=== PATIENT | female | born 1960 | race Caucasian/White ===

== ENCOUNTER 2016-08-22 21:24 | Emergency (ER) | payer OTHER ==
[~2016-08-22] VITALS: Ht 162.6 cm; Wt 90.7 kg
[~2016-08-22 21:24] MED LIST: AMBIEN 10 MG TA10 MG PO; CARISOPRODOL 3350 M1 PO; COLESTIPOL HCL1 G1 PO; DULERA 100 MCG/13 GM INH; ESTRACE0.5 MG PO; ESTRACE2 MG PO; FLAGYL500 MG PO; HYDROCODON-ACE1 EAC1 PO; HYDROCODON-ACE1 EAC8 PO; HYDROXYCHLOROQ200 M1 PO; IBUPROFEN200 M2 PO; IMURAN 50MG TAB50 M1 PO; LANSOPRAZOLE30 MG PO; LEVAQUIN 500 M500 M1 PO; LEXAPRO20 MG PO; LUNESTA3 MG PO; MIRALAX255 GM PO; MOBIC15 MG PO; NEURONTIN600 MG PO; NEXIUM40 MG PO; NORCO 10-325 T1 EACH PO; NORCO 5-325 TA1 EACH PO; ONDANSETRON HCL4 M2 PO; PHENOBARBITAL30 MG PO; PROAIR HFA8.5 GM INH; PROCARDIA XL30 MG PO; RISPERDAL 1 MG T1 MG PO; SERTRALINE HCL50 MG PO; SINGULAIR 10 MG10 M1 PO; SINGULAIR 10 MG10 MG PO; SINGULAIR4 MG PO; SYMBICORT160 MCG/4. INH; TIZANIDINE HCL 22 M1 PO; TRAZODONE 150150 M1 PO; TRINTELLIX PO; VITAMIN D1000 UNIT PO; WELLBUTRIN 100100 MG PO; WELLBUTRIN SR200 MG PO; XANAX 0.25 MG0.25 MG PO; ZYRTEC10 M5 PO; [UNRECOGNIZED DRUG - SUPPLY] PO
[2016-08-22] MEDS ORDERED: PREDNISONE 20 M20 MG PO (23:30)
== END 2016-08-22 23:36 ==
LOC: ER 21:24
DX: L50.0 Allergic urticaria (principal); L29.9 Pruritus, unspecified; J45.909 Unspecified asthma, uncomplicated; K21.9 Gastro-esophageal reflux disease without esophagitis; K74.3 Primary biliary cirrhosis; Z90.710 Acquired absence of both cervix and uterus; F32.9 Major depressive disorder, single episode, unspecified; Z90.89 Acquired absence of other organs; Z90.49 Acquired absence of other specified parts of digestive tract; Z85.3 Personal history of malignant neoplasm of breast; Z88.5 Allergy status to narcotic agent

== ENCOUNTER → 2019-08-11 | Outpatient (CLI) | payer OTHER ==
[~2019-08-11] MED LIST changes: +AZATHIOPRINE50 MG PO; +BENTYL 20 MG TA20 M1 PO; +BRINTELLIX20 MG PO; +CELECOXIB100 MG PO; +CHLORZOXAZONE500 MG PO; +ESZOPICLONE3 MG PO; +GABAPENTIN800 M1 PO; +HYDROCODONE-APA1 TA1 PO; +PEPCID20 MG PO; +PHENOBARBITAL32.4 M2 PO; +PREDNISONE 20 M20 MG PO; +RESTASIS1 EACH OPHTHALMIC; +TRAZODONE HCL50 MG PO; +ZOFRAN ODT4 MG DISSOLVE
== END ==
LOC: RAD 14:58
DX: K56.41 Fecal impaction (principal); Z90.49 Acquired absence of other specified parts of digestive tract

== ENCOUNTER → 2019-12-14 | Outpatient (CLI) | payer OTHER ==
[~2019-12-14] VITALS: Ht 160 cm; Wt 106.6 kg
[~2019-12-14] MED LIST changes: +CLONAZEPAM 0.50.5 M1 PO; +FENOFIBRATE145 M1 PO; +IMVEXXY10 MCG VAG; +LYRICA200 MG PO; +OMEPRAZOLE40 MG PO; +RIFAMPIN150 MG PO; +VOLTAREN GEL 1100 G1 TOP
[2019-12-14 10:29] VITALS: BP 141/68
--- NOTE | 2019-12-14 11:04 | NUR ---
Pain Clinic Assessment: 1. History of Osteoarthritis: NECK BACK ANKLES RT FOOT HIPS History of Rheumatoid Arthritis: Not Applicable 2. Height: 5 ft. 3 in. 160.0 cm. Weight: 235.0 lb. oz. 106.596 kg. Patient's BMI: 41.6 3. Vital Signs: BP: 141/68 Pulse: 60 Resp: 16 Temp: 02 Sat: 100 ECG Mon: 4. Pain Intensity: 7 5. Fall Risk: Dizziness: N Needs help standing or walking: N Fallen in the last 3 months: N Fall risk comments: 6. Patient on Blood Thinner: None 7. History of Hypertension: Y 8. Opioid Therapy greater than 6 weeks: N Opiate Contract Signed: 9. Risk Assessment Tool Provided: MODERATE RISK 08/30 10. Functional Assessment Tool: 11. Recreational Drug Use: Never Drug Type: Tobacco Use: Never Smoker Tobacco Type: Amount or Packs/day: How Many Years: Alcohol Use: No Frequency: Quant:
--- NOTE | 2019-12-29 14:21 | HPC ---
[facility] [address] [place] [address] PAIN MANAGEMENT CONSULTATION Name: ANUP CHAPMAN Room #: REG ROBBIE Alfaro.#: [id number] Admission: 12/14/19 Attend Phys: Alexy Manning DO Discharge: Date of : 64 Report #: [id number] THIS REPORT FOR: cc: Alexy Rowland James A. DO Johnson, James E. DO ~ DATE OF SERVICE: 12/14/2019 REFERRING PHYSICIAN: Parisa Hutchison DPM CHIEF COMPLAINT: Left foot pain. HISTORY OF PRESENT ILLNESS: As you know, the patient is a 59-year-old, class 3 morbidly obese female who has had a longstanding history of left foot pain. She states her pain began 05/14/2019 without inciting injury or trauma. She states her pain is aching and tender in sensation, exacerbated with walking and standing, improves with rest and medications. She is placing current pain score at 7/10. She was seen in consultation with Dr. Parisa Hutchison to review her ongoing left foot issue. It was noted that she is experiencing mainly lateral left mid foot pain. She states that her pain began spontaneously and is aggravated by wearing shoes and bearing weight on her foot. She is denying any concerning findings of radiculopathy. She is on chronic medication management with fentanyl and hydrocodone for other issues and has had epidural injections in the past. Due to her complicated nature and lack of improvement with conservative treatment, the patient was referred to our clinic to discuss ongoing lateral ankle and foot pain. The patient reports today that she suffered no injury or trauma. She has been following with Podiatry and has an upcoming appointment in 3 weeks. She has had no surgery today, no concerning findings of CRPS. She did have a precancerous lesion removed from the area, but this is unrelated to the current workup and diagnosis. She does have MRI, which shows positive tendinitis and mild osteoarthritic changes. Due to lack of improvement with conservative treatment, the patient was referred to our clinic to discuss options for treatment. The patient indicates today pain is continuous and constant. She describes the pain as aching and tender. She describes the pain level of 8/10 today, daily average at 8/10, worst pain has been as 10/10. Pain is exacerbated only with standing and walking and is resolved with sitting and lying down. Rest tends to improve symptoms. She has been referred to our service to discuss left lateral foot pain without radicular component. PAST MEDICAL HISTORY: 1. Anemia. 2. Asthma. 3. [place] [address] PAIN MANAGEMENT CONSULTATION Name: ANUP CHAPMAN Room #: REG Carmen Mohr#: [id number] Admission: 12/14/19 Attend Phys: Alexy Manning DO Discharge: Date of : 64 Report #: [id number] 4. Chronic colon problems. 5. Emotional problems. 6. Degenerative joint disease. 7. Osteoarthritis. 8. Morbid obesity. 9. GERD. PAST SURGICAL HISTORY: 1. Hysterectomy. 2. Epigastric nodule removal. 3. Gallbladder surgery. 4. Appendectomy. 5. Right mastectomy. 6. Cervical fusion. SOCIAL HISTORY: The patient denies tobacco use. Denies IV or illicit drug use. Denies any chronic alcohol use. 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 She is receiving disability income, but is not in litigation in regards to pain. She is unaccompanied at today's visit. REVIEW OF SYSTEMS: Positive for increasing weight, night sweats, fatigue, weakness, frequent and recurrent headaches, wearing corrective eyewear, cataracts, chronic sinus problems with nosebleeds, mouth sores, voice changes and shortness of breath when walking or lying flat, frequent and recurrent coughs, asthma, wheezing, nausea, vomiting, constipation interspersed with diarrhea, painful bowel movements, abdominal pain, nocturia, incontinence, dribbling to urine, sexual difficulty, frequent and recurrent headaches, itching, memory loss with confusion, depression, insomnia, heat and cold intolerance, slow to heal after cuts, bleeding and bruising tendencies. All other review of systems negative per 12-point review of systems other than those listed in history of present illness. Pain impact score 45/70 indicating moderate interference of daily activities secondary to pain. ALLERGIES: CODEINE. CURRENT MEDICATIONS: Estradiol 10 mcg inserted vaginally, fenofibrate 145 mg once a day, clonazepam 0.5 mg daily p.r.n., rifampin 150 mg per day, montelukast sodium 10 mg per day, Lyrica 200 mg once a day, omeprazole 40 mg per day, celecoxib 100 mg per day, hydrocodone 7.5/325 one tab every 6 hours p.r.n. pain, azathioprine 50 mg per day, cetirizine 10 mg per day, Lunesta 3 mg per day, Trintellix 20 mg once a day, Symbicort 160/4.5 mcg inhaled twice a day, ondansetron 4 mg per day, bupropion SR 200 mg once a day, albuterol 2 puffs q. 4 hours p.r.n., nifedipine 30 mg per day, hydroxychloroquine 200 mg once a day. [address] [address] PAIN MANAGEMENT CONSULTATION Name: ANUP CHAPMAN Room #: REG [facility]#: [id number] Admission: 12/14/19 Attend Phys: Alexy Manning DO Discharge: Date of : 64 Report #: [id number] IMAGING: MRI of the left hindfoot obtained 06/29/2019 shows mild tendinitis of the distal peroneus brevis tendon without findings of disruption. No osseous abnormalities noted. Mild prominence of the inferior calcaneal spur consistent with plantar fasciitis. Slight thickening of the medial band of the plantar fascia, also suggestive of plantar fasciitis, ligaments and tendons otherwise intact. PHYSICAL EXAMINATION: VITAL SIGNS: Blood pressure 141/68, pulse 60, respiratory rate 16 and unlabored. The patient is 100% on room air. Height 5 feet 3 inches tall, weight 235 pounds and BMI calculated 41.6. GENERAL: Well-developed, well-nourished, well-hydrated, class 3, morbidly obese 59-year-old female appearing stated age. She is in no acute distress. She is awake, alert and oriented x 3. Current pain score is rated at 7/10. HEENT: Normocephalic, atraumatic. Pupils equal, round and reactive. NEUROLOGIC: Speech is fluent. The patient deemed a fair historian. LUNGS: Appear clear. She is able to complete sentences without complications. No cough, wheezing or audible vesicular sounds. CARDIOVASCULAR: Regular. ABDOMEN: Soft, severely obese. Bowel sounds appear present. EXTREMITIES: Show no clubbing, no cyanosis, and no edema. MUSCULOSKELETAL: There is some palpatory tenderness over the lateral aspect of the foot consistent with tenderness of the lateral ankle. There are no changes in skin color or texture. There are no changes in skin temperature concerning of complex regional pain syndrome. Hair growth and nail growth are equal in comparing left lower extremity right. Pain is elicited with standing from a seated position. It is noted the patient is pronating while ambulating. ASSESSMENT: 1. Left lateral foot pain. 2. Left lateral ligamentous pain. 3. Chronic generalized body pain. PLAN: 1. Based on today's physical exam and history the patient has provided, the description the patient uses in regards to pain as well as the location of symptoms, it appears the symptoms are related specifically to the lateral aspect of the foot. There is no radicular component to the patient's symptoms concerning of lumbar radiculopathy. I am unable to elicit any neurologic findings concerning of impingement of a nerve leading to the area. The patient's symptoms are related to standing and walking consistent with a mechanical issue. We have discussed this with the patient today. We recommend strongly the patient follow up with Podiatry in regards to this issue. The patient does have appointment with sheet metal layout mechanic who specializes in lateral foot issues in 3 weeks. We recommend the patient follow with this individual. 2. The patient does report that she had had orthotics provided, but based on [address] [address] PAIN MANAGEMENT CONSULTATION Name: ANUP CHAPMAN CHIQUITA Room #: REG ROBBIE Mohr#: [id number] Admission: 12/14/19 Attend Phys: Alexy Manning DO Discharge: Date of : 64 Report #: [id number] her description of how these were fitted it would appear that these were not professionally performed. I believe that her orthotics may actually be exacerbating symptoms. Based on her gait today, she is pronating fairly significantly on the left side, which is putting strain on the lateral aspect of the foot and could be corrected with appropriate orthotics. She will discuss this with her sheet metal layout mechanic. 3. No medication changes made at today's visit. At this point, it would not appear that the adjustments in medication management would be necessary as no specific agent will address just lateral foot. She does have a concerning history based on our opioid risk assessment tool showing her to be a [id number] risk for potential issues with opioid medications and thus this makes her a non-candidate for this type of treatment. Anti-inflammatories can be utilized either topical or orally. We will defer to the primary team if they wish to initiate that therapy. 4. At this appointment, I do not see a need for any interventional treatments as nothing would address the issues directly without correction of the mechanical issues, which are the source of her symptoms. We will defer to the Podiatry team for those adjustments in gait and station. 5. We wish to thank the referring physician, Dr. Parisa Hutchison for the opportunity to see the patient in consultation. We recommend followup with the Podiatry group in 3 weeks as currently scheduled for followup. We are hopeful the information provided here will help direct care further. We will be returning her care to your capable services. <ELECTRONICALLY SIGNED> By: Alexy Manning DO 12/29/19 1421 [id number] Alexy Manning DO /nt
== END ==
LOC: MRI 08-27 10:17 → PAIN 06:58
PROVIDERS: ATTEND Anesthesiology Pain Medicine
DX: M79.672 Pain in left foot (principal); G89.29 Other chronic pain; J45.909 Unspecified asthma, uncomplicated; I10 Essential (primary) hypertension; M19.90 Unspecified osteoarthritis, unspecified site; K21.9 Gastro-esophageal reflux disease without esophagitis; Z88.5 Allergy status to narcotic agent; Z88.8 Allergy status to other drugs, medicaments and biological substances; Z79.899 Other long term (current) drug therapy; Z98.890 Other specified postprocedural states

== ENCOUNTER → 2020-06-28 | Outpatient (CLI) | payer OTHER | LOC: SJCVC 12:53 | PROVIDERS: ATTEND Internal Medicine | DX: R94.31 Abnormal electrocardiogram [ECG] [EKG] (principal); I10 Essential (primary) hypertension; R07.2 Precordial pain; R06.02 Shortness of breath; E78.00 Pure hypercholesterolemia, unspecified; E78.5 Hyperlipidemia, unspecified; Z72.89 Other problems related to lifestyle; Z88.5 Allergy status to narcotic agent; Z88.8 Allergy status to other drugs, medicaments and biological substances; Z79.899 Other long term (current) drug therapy ==

== ENCOUNTER → 2020-07-11 | Outpatient (CLI) | payer OTHER | LOC: SJCVCIMAG 06:40 | PROVIDERS: ATTEND Internal Medicine | DX: R00.0 Tachycardia, unspecified (principal); R06.00 Dyspnea, unspecified; R51.9 Headache, unspecified; R07.9 Chest pain, unspecified; E78.5 Hyperlipidemia, unspecified; M19.90 Unspecified osteoarthritis, unspecified site; I73.00 Raynaud's syndrome without gangrene; I10 Essential (primary) hypertension; Z79.899 Other long term (current) drug therapy; Z88.5 Allergy status to narcotic agent; Z88.8 Allergy status to other drugs, medicaments and biological substances ==

== ENCOUNTER → 2020-08-08 | Outpatient (CLI) | payer OTHER ==
[~2020-08-08] MED LIST changes: +FLEXERIL PO; +IMITREX100 MG PO; +LISINOPRIL5 MG PO; +OXYCODON-ACETA1 EAC1 PO
== END ==
LOC: SJCVC 14:39
PROVIDERS: ATTEND Internal Medicine
DX: I10 Essential (primary) hypertension (principal); R07.9 Chest pain, unspecified; R06.02 Shortness of breath; K74.3 Primary biliary cirrhosis; I73.00 Raynaud's syndrome without gangrene; E78.5 Hyperlipidemia, unspecified; M16.9 Osteoarthritis of hip, unspecified; Z82.49 Family history of ischemic heart disease and other diseases of the circulatory system; Z79.899 Other long term (current) drug therapy

== ENCOUNTER → 2020-08-10 | Outpatient (CLI) | payer OTHER | LOC: LAB 08:59 | PROVIDERS: ATTEND Orthopaedic Surgery Sports Medicine | DX: Z01.812 Encounter for preprocedural laboratory examination (principal); Z20.822 Contact with and (suspected) exposure to COVID-19 ==

== ENCOUNTER 2020-08-15 07:50 | Day surgery (SDC) | payer OTHER ==
[~2020-08-15] VITALS: Ht 162.6 cm; Wt 108.4 kg
[2020-08-15 09:49] VITALS: BP 126/77
[2020-08-15 12:20] VITALS: BP 126/77
--- NOTE | 2020-08-16 11:40 | O ---
[facility] [address] [place] [address] OPERATIVE REPORT Name: ANUP CHAPMAN Room #: DEP [facility] M.Ev.#: [id number] Admission: 08/15/20 Attend Phys: Felix Lei MD Discharge: 08/15/20 Date of : 64 Report #: [id number] THIS REPORT FOR: cc: Alexy Rowland James A. DO McCabe, Michael P. MD ~ DATE OF SERVICE: 08/15/2020 SERVICE: Orthopedics. FACILITY: [facility]. SURGEON: Felix Lei MD BLUEPRINT TRACER: Marilou Treadwell. INDICATION FOR BLUEPRINT TRACER: Extremity positioning, suture management, arthroscope management, assistance with the repair. PREOPERATIVE DIAGNOSES: 1. Right hip pain. 2. Right hip femoroacetabular impingement. 3. Right hip sub-spine impingement. 4. Right hip labral tear. 5. Morbid obesity (BMI = 42). POSTOPERATIVE DIAGNOSES: 1. Right hip pain. 2. Right hip femoroacetabular impingement. 3. Right hip sub-spine impingement. 4. Right hip labral tear. 5. Morbid obesity (BMI = 42). 6. Right hip acetabular rim chondromalacia. PROCEDURES: 1. Right hip arthroscopic labral repair. 2. Right hip arthroscopic Cam osteochondroplasty. 3. Right hip arthroscopic sub-spine decompression. 4. Right hip limited arthroscopic chondroplasty. COMPLICATIONS: None. DRAINS: None. SPECIMENS: None. [facility] [address] [place] [address] OPERATIVE REPORT Name: ANUP CHAPMAN Room #: DEP [facility] M.R.#: [id number] Admission: 08/15/20 Attend Phys: Felix Lei MD Discharge: 08/15/20 Date of : 64 Report #: [id number] ANESTHESIA: General with regional. FINDINGS: 1. Acetabular labral repair fixing anterior labral tear with lateral chondral wave sign with Mckinley CinchLock suture anchor x 2. 2. 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 3. Additional source of impingement requiring additional capsular dissection and bony work of the sub-spine with a prominent anterior inferior iliac spine that sat directly above the acetabular labrum at the point of maximal pathology. 4. Increased procedural complexity due to the patient's body habitus. Preoperative BMI of 42. We employed additional surgical positioning and intraoperative instruments to specifically accommodate the enlarged soft tissue envelope in order to have a successful procedure. HISTORY: The patient is a 59-year-old female with a history of persistent progressive right hip pain that had failed extensive conservative measures including rest, activity modifications, physical therapy, oral medicines, intra-articular injection and modalities. She had significant pain relief with intraarticular injections, history was consistent with giveway symptoms, pain affecting activities of daily living, failure of greater than 3 months of active conservative care as stated above and physical examination showed positive impingement sign with decreased internal rotation. She had x-rays, which were consistent with femoroacetabular impingement with a Tonnis grade of 0 indicating no arthrosis and alpha angle of approximately 60 degrees consistent with Cam impingement. A small crossover sign secondary to a prominent anterior-inferior iliac spine causing sub-spine impingement and an MRI, which also revealed anterior labral tear. The intra-articular injection provided significant but temporary pain relief. She was, therefore, indicated for surgical treatment after risks, benefits, alternatives and indications for surgery were discussed with her, which included but not limited to pain, bleeding, infection, injury to nerves or blood vessels, persistent pain despite surgical intervention, failure of any repairs, progression of preexisting chondral injury, stiffness, need for further surgery as well as complications related to anesthesia such as stroke, heart attack, pulmonary complications, thromboembolic disease and . Despite these risks, she wished to proceed. PROCEDURE IN DETAIL: After the right lower extremity was correctly identified in the preoperative holding area as the operative extremity, the patient underwent regional nerve block. She was then taken to the operating room where general anesthesia was induced without complication. She was padded appropriately. Prophylactic antibiotics were administered at appropriate time. The right hip femoral head and neck junction was evaluated under C-arm fluoroscopy to identify the extent of the Cam deformity. Then, the right hip [address] [address] OPERATIVE REPORT Name: ANUP CHAPMAN Room #: DEP [facility] M..#: [id number] Admission: 08/15/20 Attend Phys: Felix Lei MD Discharge: 08/15/20 Date of : 64 Report #: [id number] was prepped and draped in standard sterile fashion. Note, that the Mckinley Guardian device was used for positioning in order to eliminate the need for perineal post and this allowed for the thigh to lay flatter and therefore made it feasible to successfully obtain access to the hip joint. After the hip was prepped and draped, traction was applied to right lower extremity under C-arm fluoroscopy. An anterolateral portal was established in a typical fashion and then a mid anterior portal was established as well. There was synovitis present, which will be the indication for continuous passive motion machine usage postoperatively in order to reduce the risk of scarring and adhesions as these can be reasons for reoperation in this patient population. Transverse capsulotomy was performed and then the capsule was reflected off the dorsal side of the labrum. At this point, the prominent anterior-inferior iliac spine was visible and palpable. This was directly adjacent to the labrum, which was the source of the crossover sign on the x-ray and the cause of the extraarticular impingement that was noted on the preoperative imaging was consistent with the physical examination findings. The capsule was then dissected around the base of the anterior-inferior iliac spine in order to expose the sub-spine region and then the bur was used to perform a sub-spine decompression in a standard fashion. This was a rather large AIIS, requires a moderately extensive sub-spine decompression, which we utilized the C-arm to assist and delineating the perimeter. The acetabular rim was then decorticated to create a fresh bleeding surface for labral re-fixation and then we proceeded with labral repair. On initial inspection, the labral tear was present anteriorly, it was full thickness and then more peripherally merged into a chondral wave sign until the two Coleman CinchLock suture anchors successfully stabilized the labrum and the cartilage at this point. A limited chondroplasty was performed on the perimeter with the shaver and the final debridement was completed and then traction was let down. Hip was flexed up. Attention was turned towards the peripheral compartment. Transverse capsulotomy was then extended down the neck in a T-fashion to allow access to the entire Cam deformity and then the bur was used to perform a Cam osteochondroplasty in the standard fashion. Based on the preoperative imaging and templating, I removed the instruments, brought the C-arm and assessed the resection, I was happy with the appearance of the Cam osteoplasty, so the instruments were placed back into the hip and then we closed the T-shaped capsulotomy with a total of four #2 Vicryl sutures after the bony debris had all been successfully lavaged out of the hip. The instruments were removed. Portal sites were closed. Sterile dressing was applied. The patient was awakened from anesthesia and taken to recovery room in stable condition. There were no complications. All counts were recorded as correct. <ELECTRONICALLY SIGNED> By: Felix Lei MD 08/16/20 1140 [id number] Felix Lei MD /nt
== END 2020-08-15 12:20 | disposition home or self-care (01) ==
LOC: OR 07:50 → TBA 07:50 → OR 09:13
PROVIDERS: ATTEND Orthopaedic Surgery Sports Medicine
DX: M25.551 Pain in right hip (principal); M25.851 Other specified joint disorders, right hip; S73.101A Unspecified sprain of right hip, initial encounter; M94.251 Chondromalacia, right hip; J45.909 Unspecified asthma, uncomplicated; G43.909 Migraine, unspecified, not intractable, without status migrainosus; F32.9 Major depressive disorder, single episode, unspecified; F41.9 Anxiety disorder, unspecified; E66.01 Morbid (severe) obesity due to excess calories; Z98.890 Other specified postprocedural states; Z79.899 Other long term (current) drug therapy; Z85.3 Personal history of malignant neoplasm of breast; Z68.41 Body mass index [BMI] 40.0-44.9, adult; Z85.828 Personal history of other malignant neoplasm of skin; Z90.710 Acquired absence of both cervix and uterus; Z90.49 Acquired absence of other specified parts of digestive tract; X58.XXXA Exposure to other specified factors, initial encounter; Y93.89 Activity, other specified; Y92.89 Other specified places as the place of occurrence of the external cause; Y99.8 Other external cause status; Z88.8 Allergy status to other drugs, medicaments and biological substances
CPT/HCPCS: 50010; 50101; 50386; 51320; 51538; 52313; 56524; 56527; 57092; 57103; 58273; 58274; 58558; 58559; 58561; 58562; 58563; 58564; 58608; 58634; 58638; 58639; 58640; 62110; 62900; 64039; 70005

== ENCOUNTER → 2021-01-31 | Outpatient (CLI) | payer OTHER | LOC: RAD 11:56 | PROVIDERS: ATTEND Nurse Practitioner | DX: R05 Cough (principal) ==

== ENCOUNTER → 2021-02-08 | Outpatient (CLI) | payer OTHER | LOC: SJCVC 14:08 | PROVIDERS: ATTEND Internal Medicine | DX: I10 Essential (primary) hypertension (principal); E78.5 Hyperlipidemia, unspecified; K83.09 Other cholangitis; Z79.899 Other long term (current) drug therapy; Z88.5 Allergy status to narcotic agent; Z88.8 Allergy status to other drugs, medicaments and biological substances ==